=== PATIENT | female | born 1990 | race Caucasian/White ===

== ENCOUNTER 2023-09-17 10:13 | Outpatient (CLI) | payer BC, SELFPAY | END 2023-09-17 10:14 | disposition home or self-care (01) | LOC: NFLDREF 09-19 11:17 | PROVIDERS: Visit Provider Advanced Practice Midwife | DX: Z01.419 Encounter for gynecological examination (general) (routine) without abnormal findings (principal); Z13.6 Encounter for screening for cardiovascular disorders; Z12.4 Encounter for screening for malignant neoplasm of cervix | CPT/HCPCS: 80061 ==

== ENCOUNTER 2024-03-29 14:15 | Outpatient (CLI) | payer BC, SELFPAY | END 2024-03-29 14:16 | disposition home or self-care (01) | LOC: LKVREF 14:17 | PROVIDERS: Visit Provider Nurse Practitioner Family | DX: R42 Dizziness and giddiness (principal) | CPT/HCPCS: 80048 ==

== ENCOUNTER 2024-09-23 10:42 | Outpatient (CLI) | payer BC, SELFPAY | END 2024-09-23 10:43 | disposition home or self-care (01) | PROVIDERS: Visit Provider Registered Nurse | DX: N92.0 Excessive and frequent menstruation with regular cycle (principal) | CPT/HCPCS: 82728; 84443 ==

== ENCOUNTER 2024-10-08 13:42 | Outpatient (CLI) | payer BC, SELFPAY ==
--- NOTE | 2024-10-08 14:00 | CRLHL7_ITS ---
For Patients: As a result of the Century Cures Act, medical imaging exams and procedure reports are released immediately into your electronic medical record. You may view this report before your referring provider. If you have questions, please contact your health care provider. INDICATION: abnormal/heavy bleeding COMPARISON: None. TECHNIQUE: 2D landeros-scale and color Doppler images were acquired of the pelvis using a transabdominal and transvaginal approach. Transvaginal imaging performed to better visualize the endometrial stripe and ovaries. FINDINGS: Sonographic images demonstrate a normal size and smooth outer contour of the uterus. Uterus measures 7.6 cm in length by 3.9 cm in AP diameter by 4.8 cm in transverse dimension. The myometrium has a normal uniform echotexture. The endometrial lining measures 8.2 mm in composite thickness. Incidental cervical nabothian cysts. The right ovary measures 2.7 x 1.4 x 2.2 cm in size and the left ovary measures 3.2 x 2.0 x 2.1 cm. The ovaries demonstrate normal arterial and venous blood flow on color Doppler analysis. There are no suspicious fluid collections within the cul-de-sac. Solid smoothly marginated nonshadowing structure within the left ovary measures 1.8 x 1.9 x 1.6 cm. IMPRESSION: Endometrial thickness 9.6 millimeters. Solid smoothly marginated nonshadowing structure within the left ovary measures 1.8 x 1.9 x 1.6 cm. Follow-up ultrasound in 6 months recommended. Dictated by Elmer Cornejo MD @ 10/08/2024 4:25:36 PM (Electronically Signed)
== END 2024-10-08 13:43 | disposition home or self-care (01) ==
LOC: US 13:43
PROVIDERS: Visit Provider Registered Nurse
DX: N92.0 Excessive and frequent menstruation with regular cycle (principal); R93.89 Abnormal findings on diagnostic imaging of other specified body structures
CPT/HCPCS: 76830; 76856